=== PATIENT | female | born 1965 | race Caucasian/White ===

== ENCOUNTER → 2017-12-23 12:12 | Outpatient (CLI) | payer BC, SELFPAY ==
--- NOTE | 2017-12-23 | DI.RAD.S_ITS ---
PROCEDURE: XR TIBIA FIBULA RT 2V INDICATIONS: LEFT TIBIAL PLATEAU FRACTURE TECHNIQUE: 2 views of the tibia and fibula were acquired. COMPARISON: [facility] MADELYN Alvarez, XR KNEE STANDING BILATERAL, 05/04/2017, 9:01. FINDINGS: Bones: There is a comminuted fracture involving the left tibial plateau laterally. No additional fractures seen. Soft tissues: No suspicious soft tissue calcifications or masses. IMPRESSION: Fracture lateral tibial plateau Dictated by: Orion Ng M.D. on 12/23/2017 at 12:56 Approved by: Orion Ng M.D. on 12/23/2017 at 12:57
== END ==
PROVIDERS: Family Provider Family Medicine; PCP Family Medicine; Visit Provider Family Medicine
DX: S82.142A Displaced bicondylar fracture of left tibia, initial encounter for closed fracture (principal)
CPT/HCPCS: 73590

== ENCOUNTER → 2018-02-17 08:14 | Outpatient (CLI) | payer BC, SELFPAY ==
--- NOTE | 2018-02-17 | DI.MG.S_ITS ---
BILATERAL DIGITAL SCREENING MAMMOGRAM 3D/2D WITH CAD: 02/17/2018 CLINICAL: Routine screening. Comparison is made to exams dated: 01/20/2017 mammogram, 12/25/2015 mammogram, and 12/05/2014 mammogram - [facility]. The tissue of both breasts is predominantly fatty. Current study was also evaluated with a Computer Aided Detection (CAD) system. There is an oval low density asymmetry with an indistinct margin in the left breast at 1 o'clock posterior depth. No other significant masses, calcifications, or other findings are seen in either breast. IMPRESSION: INCOMPLETE: NEEDS ADDITIONAL IMAGING EVALUATION The oval low density asymmetry in the left breast is indeterminate. Mediolateral and spot compression views as well as additional views with possible ultrasound are recommended. This exam was interpreted at Station ID: [id number]. NOTE: For mammograms, a report in lay terms will be sent to the patient. Approximately 15% of breast malignancies will not be visualized mammographically. In the management of a palpable breast mass, a negative mammogram must not discourage biopsy of a clinically suspicious lesion. Electronically Signed By: Kvng slater/luz:02/17/2018 12:17:43 letter sent: Additional Imaging Needed ACR BI-RADS Category 0: Incomplete 3340F
== END ==
PROVIDERS: Family Provider Family Medicine; PCP Family Medicine; Visit Provider Family Medicine
DX: Z12.31 Encounter for screening mammogram for malignant neoplasm of breast (principal)
CPT/HCPCS: 77063; 77067

== ENCOUNTER → 2018-04-13 12:22 | Outpatient (CLI) | payer BC, SELFPAY ==
--- NOTE | 2018-04-13 | DI.MG.S_ITS ---
UNILATERAL LEFT DIGITAL DIAGNOSTIC MAMMOGRAM 3D/2D WITH ADDITIONAL VIEWS: 04/13/2018 CLINICAL: Additional evaluation requested from prior study. Comparison is made to exams dated: 02/17/2018 mammogram, 01/20/2017 mammogram, and 12/25/2015 mammogram - [facility]. The tissue of left breast is predominantly fatty. The asymmetry with an indistinct margin in the left breast at 1 o'clock posterior depth is not seen in additional views. No other significant masses or calcifications are seen in the breast. IMPRESSION: The asymmetry in the left breast seen on the screening mammogram likely respresents superimposed fibroglandular tissue and is benign. There is no mammographic evidence of malignancy. A 1 year screening mammogram is recommended. This exam was interpreted at Station ID: [id number]. NOTE: For mammograms, a report in lay terms will be sent to the patient. Approximately 15% of breast malignancies will not be visualized mammographically. In the management of a palpable breast mass, a negative mammogram must not discourage biopsy of a clinically suspicious lesion. Electronically Signed By: Crystal Juarez M.D. lk/:04/13/2018 13:07:45 letter sent: Normal Exam ACR BI-RADS Category 2: Benign Finding(s) 3342F
== END ==
PROVIDERS: PCP Family Medicine; Visit Provider Family Medicine
DX: R92.8 Other abnormal and inconclusive findings on diagnostic imaging of breast (principal)
CPT/HCPCS: 77065; G0279

== ENCOUNTER → 2019-03-30 16:58 | Outpatient (CLI) | payer BC, SELFPAY ==
--- NOTE | 2019-03-30 | DI.MG.S_ITS ---
BILATERAL DIGITAL SCREENING MAMMOGRAM 3D/2D WITH CAD: 03/30/2019 CLINICAL: Routine screening. Comparison is made to exams dated: 02/17/2018 mammogram, 01/20/2017 mammogram, 12/25/2015 mammogram, 04/13/2018 mammogram, 12/05/2014 mammogram, and 04/05/2013 mammogram - [facility]. The tissue of both breasts is predominantly fatty. Current study was also evaluated with a Computer Aided Detection (CAD) system. No significant masses, calcifications, or other findings are seen in either breast. There has been no significant interval change. IMPRESSION: NEGATIVE There is no mammographic evidence of malignancy. A 1 year screening mammogram is recommended. This exam was interpreted at Station ID: [id number]. NOTE: For mammograms, a report in lay terms will be sent to the patient. Approximately 15% of breast malignancies will not be visualized mammographically. In the management of a palpable breast mass, a negative mammogram must not discourage biopsy of a clinically suspicious lesion. Electronically Signed By: Fritz salazar/luz:03/31/2019 08:29:35 letter sent: Normal Exam ACR BI-RADS Category 1: Negative 3341F
== END ==
PROVIDERS: Family Provider Family Medicine; PCP Family Medicine; Visit Provider Family Medicine
DX: Z12.31 Encounter for screening mammogram for malignant neoplasm of breast (principal)
CPT/HCPCS: 77063; 77067

== ENCOUNTER → 2020-05-18 13:51 | Outpatient (CLI) | payer OTHER, SELFPAY ==
--- NOTE | 2020-05-18 | DI.MG.S_ITS ---
BILATERAL DIGITAL SCREENING MAMMOGRAM 3D/2D WITH CAD: 05/18/2020 CLINICAL: Routine screening. Comparison is made to exams dated: 03/30/2019 mammogram, 02/17/2018 mammogram, and 01/20/2017 mammogram - [facility]. The tissue of both breasts is predominantly fatty. Current study was also evaluated with a Computer Aided Detection (CAD) system. There is a new 3 mm oval focal asymmetry in the left breast at 6 o'clock middle depth. No other significant masses, calcifications, or other findings are seen in either breast. IMPRESSION: INCOMPLETE: NEEDS ADDITIONAL IMAGING EVALUATION The new 3 mm oval focal asymmetry in the left breast is indeterminate. A diagnostic mammogram and ultrasound is recommended. This exam was interpreted at Station ID: [id number]. NOTE: For mammograms, a report in lay terms will be sent to the patient. Approximately 15% of breast malignancies will not be visualized mammographically. In the management of a palpable breast mass, a negative mammogram must not discourage biopsy of a clinically suspicious lesion. Electronically Signed By: Otis Caba acr/:05/19/2020 18:39:12 letter sent: Additional Imaging Needed ACR BI-RADS Category 0: Incomplete 3340F
== END ==
PROVIDERS: Family Provider Family Medicine; PCP Family Medicine; Referring Provider Family Medicine; Visit Provider Family Medicine
DX: Z12.31 Encounter for screening mammogram for malignant neoplasm of breast (principal)
CPT/HCPCS: 77063; 77067

== ENCOUNTER → 2020-06-05 13:20 | Outpatient (CLI) | payer OTHER, SELFPAY ==
--- NOTE | 2020-06-05 13:23 | DI.US.S_ITS ---
ULTRASOUND OF LEFT BREAST: 06/05/2020 CLINICAL: Patient returns today to evaluate a focal asymmetry in the left breast. Comparison is made to exams dated: 06/05/2020 mammogram, 05/18/2020 mammogram, 03/30/2019 mammogram, 04/13/2018 mammogram, and 02/17/2018 mammogram - [facility]. Real-time ultrasound of the left breast was performed. Cleaning scale images of the real-time examination were reviewed. No significant abnormalities were seen sonographically in the left breast. Specifically, no finding to correspond to the patient's 3 mm mammographic abnormality. IMPRESSION: PROBABLY BENIGN There is no sonographic correlate to the patient's mammography abnormality. A follow-up left mammogram in 6 months is recommended to demonstrate stability. Findings and recommendations were conveyed to the patient at time of exam. This exam was interpreted at Station ID: [id number]. Electronically Signed By: Yuliet leonard/:06/05/2020 14:28:36 letter sent: Followup Recommended Ultrasound BI-RADS: 3 Probably benign
--- NOTE | 2020-06-05 13:23 | DI.MG.S_ITS ---
UNILATERAL LEFT DIGITAL DIAGNOSTIC MAMMOGRAM 3D/2D WITH ADDITIONAL VIEWS: 06/05/2020 CLINICAL: Additional evaluation requested from prior study. Comparison is made to exams dated: 05/18/2020 mammogram, 03/30/2019 mammogram, and 04/13/2018 mammogram - [facility]. The tissue of left breast is predominantly fatty. There is a new 3 mm oval focal asymmetry in the left breast central to the nipple middle depth. This is seen in additional views. No other significant masses or calcifications are seen in the breast. IMPRESSION: INCOMPLETE: NEEDS ADDITIONAL IMAGING EVALUATION The new 3 mm oval focal asymmetry in the left breast remains indeterminate. An ultrasound is recommended. This was performed immediately following this exam. This exam was interpreted at Station ID: [id number]. NOTE: For mammograms, a report in lay terms will be sent to the patient. Approximately 15% of breast malignancies will not be visualized mammographically. In the management of a palpable breast mass, a negative mammogram must not discourage biopsy of a clinically suspicious lesion. Electronically Signed By: Yuliet leonard/:06/05/2020 13:52:31 ACR BI-RADS Category 0: Incomplete 3340F
== END ==
PROVIDERS: Family Provider Family Medicine; PCP Family Medicine; Referring Provider Family Medicine; Visit Provider Family Medicine
DX: R92.8 Other abnormal and inconclusive findings on diagnostic imaging of breast (principal); N64.89 Other specified disorders of breast
CPT/HCPCS: 76642; 77065; G0279

== ENCOUNTER → 2021-01-23 08:37 | Outpatient (CLI) | payer OTHER, SELFPAY ==
--- NOTE | 2021-01-23 | DI.MG.S_ITS ---
UNILATERAL LEFT DIGITAL DIAGNOSTIC MAMMOGRAM 3D/2D: 01/23/2021 CLINICAL: Short term follow up for the left breast. Comparison is made to exams dated: 06/05/2020 ultrasound, 06/05/2020 mammogram, and 05/18/2020 mammogram - [facility]. The tissue of left breast is predominantly fatty. There is a 3 mm round focal asymmetry in the left breast central to the nipple middle depth. Finding is seen only on tomography. This is less prominent as it can only be seen on the MLO view now. It has not changed in size or morphology. Previously, there was no ultrasound correlate. No other significant masses or calcifications are seen in the breast. IMPRESSION: PROBABLY BENIGN The 3 mm round focal asymmetry in the left breast is stable size, less prominent, has no sonographic correlate, and is probably benign. A follow-up mammogram in 6 months is recommended to demonstrate stability. The patient will be due for bilateral mammograms at that same visit. Findings and recommendations were conveyed to the patient at time of exam. This exam was interpreted at Station ID: [id number]. NOTE: For mammograms, a report in lay terms will be sent to the patient. Approximately 15% of breast malignancies will not be visualized mammographically. In the management of a palpable breast mass, a negative mammogram must not discourage biopsy of a clinically suspicious lesion. Electronically Signed By: Yuliet leonard/:01/23/2021 09:15:24 letter sent: Followup Recommended ACR BI-RADS Category 3: Probably benign 3343F
== END ==
PROVIDERS: Family Provider Family Medicine; PCP Family Medicine; Referring Provider Family Medicine; Visit Provider Family Medicine
DX: R92.8 Other abnormal and inconclusive findings on diagnostic imaging of breast (principal); N64.89 Other specified disorders of breast
CPT/HCPCS: 77065; G0279

== ENCOUNTER → 2021-11-05 09:25 | Outpatient (CLI) | payer OTHER, SELFPAY ==
--- NOTE | 2021-11-05 | DI.MG.S_ITS ---
BILATERAL DIGITAL DIAGNOSTIC MAMMOGRAM 3D/2D: 11/05/2021 CLINICAL: Short term follow up for the left breast. Due bilat. Comparison is made to exams dated: 01/23/2021 mammogram, 06/05/2020 ultrasound, 06/05/2020 mammogram, 05/18/2020 mammogram, 03/30/2019 mammogram, and 04/13/2018 mammogram - [facility]. The tissue of both breasts is predominantly fatty. There is a stable 3 mm round focal asymmetry in the left breast central to the nipple middle depth. This was not seen on the prior ultrasound. No other significant masses, calcifications, or other findings are seen in either breast. IMPRESSION: PROBABLY BENIGN Stable focal asymmetry in the left breast is probably benign. This likely represents a small cyst. A follow-up mammogram in 12 months is recommended to demonstrate long-term stability. Exam findings were conveyed to the patient. This exam was interpreted at Station ID: [id number]. NOTE: For mammograms, a report in lay terms will be sent to the patient. Approximately 15% of breast malignancies will not be visualized mammographically. In the management of a palpable breast mass, a negative mammogram must not discourage biopsy of a clinically suspicious lesion. Electronically Signed By: Fritz Arreaga M.D. slc/:11/06/2021 11:51:47 letter sent: Followup Recommended ACR BI-RADS Category 3: Probably benign 3343F
== END ==
PROVIDERS: Family Provider Family Medicine; PCP Family Medicine; Referring Provider Family Medicine; Visit Provider Family Medicine
DX: R92.8 Other abnormal and inconclusive findings on diagnostic imaging of breast (principal); N64.89 Other specified disorders of breast
CPT/HCPCS: 77066; G0279

== ENCOUNTER → 2023-01-08 10:10 | Outpatient (CLI) | payer OTHER, SELFPAY ==
--- NOTE | 2023-01-08 | DI.MG.S_ITS ---
BILATERAL DIGITAL DIAGNOSTIC MAMMOGRAM 3D/2D: 01/08/2023 CLINICAL: Short term follow up of the left breast, due for bilateral imaging. Comparison is made to exams dated: 11/05/2021 mammogram, 01/23/2021 mammogram, 06/05/2020 mammogram, 05/18/2020 mammogram, and 03/30/2019 mammogram - [facility]. Both breasts are almost entirely fatty (category a/<25% glandular tissue). There is a stable 3 mm round focal asymmetry in the left breast central to the nipple middle depth. This was not seen on the prior ultrasound. There is a new 4 mm oval high density focal asymmetry with an indistinct margin in the right breast at 1 o'clock posterior depth. No other significant masses or calcifications are seen in either breast. IMPRESSION: INCOMPLETE: NEEDS ADDITIONAL IMAGING EVALUATION The new 4 mm oval high density focal asymmetry in the right breast at 1 o'clock posterior depth most likely is a lymph node and is indeterminate. An ultrasound is recommended. This was performed immediately following this exam. The 3mm left breast asymmetry has demonstrated two years of stability and is therefore benign. Mammograms are otherwise stable. Based on the Tyrer Cuzick model (a risk assessment model) the patient's lifetime risk is 4.8% and her 10 year risk is 1.4%. According to the ACR, ACS, and NCCN guidelines, an annual breast MRI exam along with mammogram is recommended if the patient's lifetime risk is 20% or greater. This exam was interpreted at Station ID: [id number]. NOTE: For mammograms, a report in lay terms will be sent to the patient. Approximately 15% of breast malignancies will not be visualized mammographically. In the management of a palpable breast mass, a negative mammogram must not discourage biopsy of a clinically suspicious lesion. Electronically Signed By: Yuliet leonard/:01/08/2023 13:00:18 ACR BI-RADS Category 0: Incomplete 3340F
--- NOTE | 2023-01-08 | DI.US.S_ITS ---
LIMITED ULTRASOUND OF RIGHT BREAST: 01/08/2023 CLINICAL: Abnormal mammogram. Comparison is made to exams dated: 01/08/2023 mammogram, 11/05/2021 mammogram, 05/18/2020 mammogram, 03/30/2019 mammogram, 02/17/2018 mammogram, and 01/20/2017 mammogram - [facility]. Ultrasound of the right breast upper outer quadrant was performed. Cleaning scale images of the real-time examination were reviewed. No significant abnormalities were seen sonographically in the upper outer right breast. The scan was inadvertantly directed to the wrong quadrant. The quadrant of mammographic abnormaltiy was not scanned. IMPRESSION: INCOMPLETE: NEEDS ADDITIONAL IMAGING EVALUATION Inadvertantly incorrect scan location. The patient will be notified to return for correct imaging as soon as possible at no additional charge. This exam was interpreted at Station ID: [id number]. Electronically Signed By: Yuliet leonard/:01/08/2023 13:07:47 Ultrasound BI-RADS: 0 Indeterminate
== END ==
PROVIDERS: Family Provider Family Medicine; PCP Family Medicine; Referring Provider Family Medicine; Visit Provider Family Medicine
DX: R92.8 Other abnormal and inconclusive findings on diagnostic imaging of breast (principal); N64.89 Other specified disorders of breast
CPT/HCPCS: 76642; 77066; G0279

== ENCOUNTER → 2023-06-11 14:08 | Outpatient (CLI) | payer OTHER, SELFPAY ==
--- NOTE | 2023-06-11 | DI.US.S_ITS ---
ULTRASOUND OF RIGHT BREAST: 06/11/2023 CLINICAL: Patient returns today to evaluate a focal asymmetry in the right breast. Comparison is made to exams dated: 01/08/2023 ultrasound, 01/08/2023 mammogram, 11/05/2021 mammogram, 05/18/2020 mammogram, 03/30/2019 mammogram, and 02/17/2018 mammogram - [facility]. Real-time ultrasound of the right breast was performed. Cleaning scale images of the real-time examination were reviewed. No significant abnormalities were seen sonographically in the right breast. IMPRESSION: PROBABLY BENIGN There are no abnormalities seen in the right breast to correspond with the mammography findings at 1, 2, 3, and 12 o'clock. The high density asymmetry seen on mammogram in December 2022 at 1:00 may represent a prominent vascular turn. This is probably benign. A follow-up mammogram in 6 months is recommended to demonstrate stability. She is due for bilateral exam in December 2023. This exam was interpreted at Station ID: [id number]. Electronically Signed By: Aleksander Hogan M.D. lc/:06/11/2023 14:34:14 letter sent: Followup Recommended Ultrasound BI-RADS: 3 Probably benign
== END ==
LOC: US 14:09
PROVIDERS: Family Provider Family Medicine; PCP Family Medicine; Referring Provider Family Medicine; Visit Provider Family Medicine
DX: R92.8 Other abnormal and inconclusive findings on diagnostic imaging of breast (principal)
CPT/HCPCS: 76642

== ENCOUNTER → 2024-06-09 08:00 | Outpatient (CLI) | payer OTHER, SELFPAY ==
--- NOTE | 2024-06-09 | DI.MG.S_ITS ---
BILATERAL DIGITAL DIAGNOSTIC MAMMOGRAM 3D/2D SHORT-TERM FOLLOW-UP: 06/09/2024 CLINICAL: Short term follow up of the right breast, due for bilateral imaging. Comparison is made to exams dated: 01/08/2023 mammogram, 11/05/2021 mammogram, and 05/18/2020 mammogram - [facility]. The breasts are almost entirely fatty (category a/<25% glandular tissue). The previously described 4 mm oval high density focal asymmetry in the right breast at 1 o'clock posterior depth is no longer visualized. No prior ultrasound correlate identified. No other significant masses or calcifications are seen in either breast. IMPRESSION: NEGATIVE No mammographic evidence of malignancy. Return to annual mammogram screening schedule is recommended. Findings and recommendations were conveyed to the patient during today's evaluation. Based on the Tyrer Cuzick model (a risk assessment model) the patient's lifetime risk is 4.7% and her 10 year risk is 1.6%. According to the ACR, ACS, and NCCN guidelines, an annual breast MRI exam along with mammogram is recommended if the patient's lifetime risk is 20% or greater. This exam was interpreted at Station ID: [id number]. NOTE: For mammograms, a report in lay terms will be sent to the patient. Approximately 15% of breast malignancies will not be visualized mammographically. In the management of a palpable breast mass, a negative mammogram must not discourage biopsy of a clinically suspicious lesion. Electronically Signed By: Yarely Pérez M.D., Ph.D. eb/:06/09/2024 09:53:00 Entry: angelica - 06/12/2024 08:54:16 letter sent: Normal Exam ACR BI-RADS Category 1: Negative
== END ==
PROVIDERS: Family Provider Family Medicine; PCP Family Medicine; Referring Provider Family Medicine; Visit Provider Family Medicine
DX: R92.8 Other abnormal and inconclusive findings on diagnostic imaging of breast (principal); R92.313 Mammographic fatty tissue density, bilateral breasts
CPT/HCPCS: 77066; G0279